=== PATIENT | female | born 1965 | race Caucasian/White ===

== ENCOUNTER 2017-05-17 09:39 | Emergency (ER) | payer OTHER ==
[~2017-05-17] VITALS: Ht 160 cm; Wt 90.7 kg
[2017-05-17] MEDS ORDERED: PRILOSEC 10MG C10 MG PO (09:47)
[2017-05-17] MEDS ORDERED: METFORMIN HCL500 M2 PO (09:47)
[2017-05-17] MEDS ORDERED: CELEXA10 MG PO (09:47)
[2017-05-17] MEDS ORDERED: EVAMIST8.1 ML TOP (09:48)
[2017-05-17] MEDS ORDERED: COZAAR 50 MG TA50 M2 PO (09:49)
[2017-05-17 10:02] LABS: ABSOLUTE BASOPHILS 0.1 thou/uL (0.0-0.2); ABSOLUTE EOSINOPHILS 0.2 thou/uL (0.0-0.7); ABSOLUTE LYMPHOCYTES 4.1 thou/uL (0.8-5.3); ABSOLUTE MONOCYTES 0.9 thou/uL (0.0-1.2); ABSOLUTE NEUTROPHILS 4.5 thou/uL (1.6-8.1); BASOPHILS 0.7 %; HEMATOCRIT 43.4 % (37.0-47.0); HEMOGLOBIN 14.5 gm/dL (12.0-15.0); LYMPHOCYTES 42.6 %; MCH 30.4 pg (26.0-34.0); MCHC 33.5 g/dL (28.0-37.0); MCV 90.8 fL (80.0-100.0); MONOCYTES 8.9 %; MPV 8.3 fl. (7.2-11.1); NUCLEATED RBCS 0 /100WBC; PLATELET COUNT* 349 thou/uL (150-400); POLYS 45.8 %; RBC 4.78 mil/uL (4.20-5.00); RDW-CV 13.6 % (10.5-14.5); WBC 9.7 thou/uL (4.0-11.0)
[2017-05-17 10:06] LABS: ANION GAP 7 mmol/L (7-16); BUN 12 mg/dL (7-18); CALCIUM 9.2 mg/dL (8.5-10.1); CHLORIDE 103 mmol/L (98-107); CO2 30 mmol/L (21-32); CREATININE 1.1 mg/dL (0.6-1.3); GLUCOSE 111 mg/dL (70-99); POTASSIUM 3.9 mmol/L (3.5-5.1); SODIUM 140 mmol/L (136-145)
[2017-05-17 10:17] LABS: ALBUMIN 3.8 g/dL (3.4-5.0); ALKALINE PHOSPHATASE 79 U/L (46-116); LIPASE 134 U/L (73-393); NT-PRO BRAIN NAT PEPTIDE 12 pg/mL (<300); SGOT 13 U/L (15-37); SGPT 21 U/L (30-65); TOTAL BILIRUBIN 0.5 mg/dL (<0.1-1.0); TROPONIN-I LEVEL <0.06 ng/mL (<0.06)
[2017-05-17 10:39] VITALS: BP 136/82
--- NOTE | 2017-05-17 16:21 | EKG ---
[place] [address] ELECTROCARDIOGRAM REPORT Name: SOFIYA ANDREA Room: [facility]#: [id number] Admission: 05/17/17 Attend Phys: Discharge: 05/17/17 Date of : 67 Report #: [id number] THIS REPORT FOR: //name// [facility] ED Test Date: 2017-05-17 Test Time: 09:48:08 Pat Name: SOFIYA ANDREA Department: Room: Gender: F Coroner: Hugo ELIZABETH : 1965 Requested By: Alirio Vegas Order Number: [id number] MD: Fox Julian Measurements Intervals [place] Rate: 94 P: 30 RI: 148 QRS: 43 QRSD: 105 T: 44 QT: 351 QTc: 439 Interpretive Statements Sinus rhythm Nondiagnostic inferior Q waves Baseline wander in lead(s) II,III,aVF,V1,V4,V6 No previous ECG available for comparison Electronically Signed On 05-17-2017 16:20:50 CDT by Fox Julian [email or web address] <ELECTRONICALLY SIGNED> By: Fox Julian MD, [facility] 05/17/17 1620 0948 0948 Fox Julian MD, [facility] /EPI
== END 2017-05-17 10:40 | disposition home or self-care (01) ==
LOC: M.ERS 09:39
PROVIDERS: Emergency Medicine
DX: I10 Essential (primary) hypertension (principal); R07.89 Other chest pain; Z90.710 Acquired absence of both cervix and uterus; Z88.0 Allergy status to penicillin

== ENCOUNTER → 2017-10-16 | Outpatient (CLI) | payer OTHER ==
[~2017-10-16] MED LIST: CELEXA10 MG PO; COZAAR 50 MG TA50 M2 PO; EFFEXOR XR75 MG PO; EVAMIST8.1 ML TOP; HALOPERIDOL 2 MG2 MG PO; IBGARD90 MG PO; METFORMIN HCL500 M2 PO; PRILOSEC 10MG C10 MG PO
== END ==
LOC: M.CT 08:32
DX: G43.011 Migraine without aura, intractable, with status migrainosus (principal); I10 Essential (primary) hypertension

== ENCOUNTER 2018-01-12 15:42 | Emergency (ER) | payer OTHER ==
[~2018-01-12] VITALS: Ht 160 cm; Wt 90.7 kg
[~2018-01-12 15:42] MED LIST changes: -EFFEXOR XR75 MG PO; -HALOPERIDOL 2 MG2 MG PO; -IBGARD90 MG PO
[2018-01-12] MEDS ORDERED: IBGARD90 MG PO (15:52)
[2018-01-12 16:06] LABS: ABSOLUTE BASOPHILS 0.1 thou/uL (0.0-0.2); ABSOLUTE EOSINOPHILS 0.3 thou/uL (0.0-0.7); ABSOLUTE LYMPHOCYTES 3.1 thou/uL (0.8-5.3); ABSOLUTE MONOCYTES 0.9 thou/uL (0.0-1.2); ABSOLUTE NEUTROPHILS 4.3 thou/uL (1.6-8.1); HEMATOCRIT 39.9 % (37.0-47.0); HEMOGLOBIN 13.7 gm/dL (12.0-15.0); LYMPHOCYTES 35.4 %; MCH 30.7 pg (26.0-34.0); MCHC 34.2 g/dL (28.0-37.0); MCV 89.7 fL (80.0-100.0); MONOCYTES 10.5 %; MPV 8.2 fl. (7.2-11.1); NUCLEATED RBCS 0 /100WBC; PLATELET COUNT* 342 thou/uL (150-400); POLYS 49.1 %; RBC 4.45 mil/uL (4.20-5.00); RDW-CV 13.3 % (10.5-14.5); WBC 8.8 thou/uL (4.0-11.0)
[2018-01-12 16:16] LABS: ANION GAP 10 mmol/L (7-16); BUN 17 mg/dL (7-18); CALCIUM 9.2 mg/dL (8.5-10.1); CHLORIDE 99 mmol/L (98-107); CO2 29 mmol/L (21-32); CREATININE 1.4 mg/dL (0.6-1.3); GLUCOSE 130 mg/dL (70-99); POTASSIUM 3.6 mmol/L (3.5-5.1); SODIUM 138 mmol/L (136-145)
[2018-01-12 16:22] LABS: APTT 26.6 Seconds (25.0-31.3); PROTIME 10.3 Seconds (9.20-11.50)
[2018-01-12 16:35] LABS: ALBUMIN 3.8 g/dL (3.4-5.0); ALKALINE PHOSPHATASE 88 U/L (46-116); CK-MB MASS 1.9 ng/mL (<0.5-3.6); LIPASE 146 U/L (73-393); MAGNESIUM 1.9 mg/dL (1.8-2.4); NT-PRO BRAIN NAT PEPTIDE 8 pg/mL (<300); SGOT 23 U/L (15-37); SGPT 28 U/L (30-65); TOTAL BILIRUBIN 0.3 mg/dL (<0.1-1.0); TOTAL PROTEIN 7.6 g/dL (6.4-8.2); TROPONIN-I LEVEL <0.06 ng/mL (<0.06)
[2018-01-12 16:36] LABS: INFLUENZA A ANTIGEN None Detected (None Detect); INFLUENZA B ANTIGEN None Detected (None Detect)
[2018-01-12 16:48] VITALS: BP 122/74
--- NOTE | 2018-01-13 11:36 | EKG ---
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 : 1965 Requested By: Enrike Farrar Order Number: [id number] MD: Chavo Dinero Measurements Intervals [place] Rate: 123 P: 48 NC: 152 QRS: 70 QRSD: 95 T: 42 QT: 312 QTc: 447 Interpretive Statements Sinus tachycardia Baseline wander in lead(s) I,II,III,aVR,aVL Compared to ECG 05/17/2017 09:48:08 Sinus rhythm no longer present Inferior Q waves no longer present Q waves no longer present Electronically Signed On 01-13-2018 11:36:19 HOSE MENDER by Chavo Dinero [email or web address] <ELECTRONICALLY SIGNED> By: Chavo Dinero MD, FACC 01/13/18 1136 1546 1546 Chavo Dinero MD, FAC /EPI
== END 2018-01-12 16:49 | disposition home or self-care (01) ==
LOC: M.ERS 15:42
PROVIDERS: Family Medicine
DX: B34.9 Viral infection, unspecified (principal); R42 Dizziness and giddiness; R19.7 Diarrhea, unspecified; K58.9 Irritable bowel syndrome, unspecified; Z90.710 Acquired absence of both cervix and uterus; Z98.890 Other specified postprocedural states; Z88.0 Allergy status to penicillin

== ENCOUNTER 2018-01-18 14:12 | Emergency (ER) | payer OTHER ==
[~2018-01-18] VITALS: Ht 160 cm; Wt 90.7 kg
[~2018-01-18 14:12] MED LIST changes: +IBGARD90 MG PO
[2018-01-18 14:40] LABS: ABSOLUTE BASOPHILS 0.1 thou/uL (0.0-0.2); ABSOLUTE EOSINOPHILS 0.3 thou/uL (0.0-0.7); ABSOLUTE LYMPHOCYTES 3.9 thou/uL (0.8-5.3); ABSOLUTE MONOCYTES 0.9 thou/uL (0.0-1.2); ABSOLUTE NEUTROPHILS 3.7 thou/uL (1.6-8.1); BASOPHILS 0.8 %; EOSINOPHILS 3.3 %; HEMATOCRIT 41.4 % (37.0-47.0); HEMOGLOBIN 13.9 gm/dL (12.0-15.0); LYMPHOCYTES 43.7 %; MCHC 33.6 g/dL (28.0-37.0); MCV 89.3 fL (80.0-100.0); MPV 8.2 fl. (7.2-11.1); NUCLEATED RBCS 0 /100WBC; PLATELET COUNT* 414 thou/uL (150-400); POLYS 42.2 %; RBC 4.64 mil/uL (4.20-5.00); WBC 8.9 thou/uL (4.0-11.0)
[2018-01-18 14:56] LABS: ANION GAP 14 mmol/L (7-16); BUN 11 mg/dL (7-18); CALCIUM 9.1 mg/dL (8.5-10.1); CHLORIDE 103 mmol/L (98-107); CO2 23 mmol/L (21-32); CREATININE 1.3 mg/dL (0.6-1.3); GLUCOSE 125 mg/dL (70-99); POTASSIUM 3.8 mmol/L (3.5-5.1); SODIUM 140 mmol/L (136-145)
[2018-01-18 15:08] LABS: ALBUMIN 3.6 g/dL (3.4-5.0); ALKALINE PHOSPHATASE 93 U/L (46-116); LIPASE 147 U/L (73-393); SGOT 18 U/L (15-37); SGPT 29 U/L (30-65); TOTAL BILIRUBIN 0.3 mg/dL (<0.1-1.0); TOTAL PROTEIN 7.7 g/dL (6.4-8.2); TROPONIN-I LEVEL <0.06 ng/mL (<0.06)
[2018-01-18] MEDS ORDERED: EFFEXOR XR75 MG PO (17:55)
[2018-01-18] MEDS ORDERED: HALOPERIDOL 2 MG2 MG PO (17:55)
[2018-01-18 18:15] VITALS: BP 118/83
--- NOTE | 2018-01-21 15:24 | EKG ---
[place] [address] ELECTROCARDIOGRAM REPORT Name: SOFIYA ANDREA Polly Room: [facility]#: [id number] Admission: 01/18/18 Attend Phys: Discharge: 01/18/18 Date of : 67 Report #: [id number] THIS REPORT FOR: //name// [facility] ED Test Date: 2018-01-18 Test Time: 14:13:02 Pat Name: SOFIYA ANDREA Department: Room: Gender: F Manager Of Disaster Recovery: UNKNOWN : 1965 Requested By: Yumiko Day Order Number: [id number] MD: Silverio Barrett Measurements Intervals [place] Rate: 117 P: 49 MN: 154 QRS: 70 QRSD: 95 T: 48 QT: 330 QTc: 461 Interpretive Statements Sinus tachycardia Compared to ECG 01/12/2018 15:46:17 No significant changes Electronically Signed On 01-21-2018 15:24:43 PLANT OPERATIONS MANAGER by Silverio Barrett [email or web address] <ELECTRONICALLY SIGNED> By: Silverio Barrett MD, [facility] 01/21/18 1524 1413 1413 Silverio Barrett MD, FAC /EPI
== END 2018-01-18 18:15 | disposition home or self-care (01) ==
LOC: M.ERS 14:12
PROVIDERS: Personal Emergency Response Attendant
DX: R07.89 Other chest pain (principal); F41.9 Anxiety disorder, unspecified

== ENCOUNTER → 2018-02-15 | Outpatient (CLI) | payer OTHER ==
[~2018-02-15] VITALS: Ht 160 cm; Wt 89.4 kg
[~2018-02-15] MED LIST changes: +COZAAR 50 MG TA50 M1 PO; -COZAAR 50 MG TA50 M2 PO; +EFFEXOR XR75 MG PO; +HALOPERIDOL 2 MG2 MG PO
[2018-02-15 08:21] LABS: HEMATOCRIT 41.9 % (37.0-47.0); HEMOGLOBIN 14.2 gm/dL (12.0-15.0); MCHC 33.9 g/dL (28.0-37.0); MCV 91.6 fL (80.0-100.0); MPV 8.6 fl. (7.2-11.1); RBC 4.57 mil/uL (4.20-5.00); RDW-CV 13.6 % (10.5-14.5); WBC 8.3 thou/uL (4.0-11.0)
[2018-02-15 08:24] VITALS: BP 141/102
[2018-02-15 08:31] LABS: APTT 20.9 Seconds (25.0-31.3); PROTIME 9.8 Seconds (9.20-11.50)
[2018-02-15 08:32] LABS: ANION GAP 8 mmol/L (7-16); BUN 14 mg/dL (7-18); CHLORIDE 105 mmol/L (98-107); CO2 28 mmol/L (21-32); CREATININE 1.2 mg/dL (0.6-1.3); GLUCOSE 111 mg/dL (70-99); POTASSIUM 4.1 mmol/L (3.5-5.1); SODIUM 141 mmol/L (136-145)
[2018-02-15 08:37] LABS: ALBUMIN 3.6 g/dL (3.4-5.0); ALKALINE PHOSPHATASE 85 U/L (46-116); CHOLESTEROL 248 mg/dL (<200); HDL CHOLESTEROL 42 mg/dL (>40); LDL CHOLESTEROL 153 mg/dL (<100); SERUM ASSESSMENT Clear; SGOT 16 U/L (15-37); SGPT 31 U/L (30-65); TC:HDL 5.9 Ratio (Not establshd); TOTAL BILIRUBIN 0.2 mg/dL (<0.1-1.0); TOTAL PROTEIN 7.8 g/dL (6.4-8.2); TRIGLYCERIDE 265 mg/dL (<150); VLDL 53 mg/dL (<40)
[2018-02-15 10:22] VITALS: BP 142/91
[2018-02-15 11:03] VITALS: BP 161/98
--- NOTE | 2018-02-15 15:04 | EKG ---
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: : 1965 Requested By: Jimmy Sanchez Order Number: [id number] Reading MD: Jimmy Sanchez Measurements Intervals [place] Rate: 95 P: -1 LA: 147 QRS: 54 QRSD: 100 T: 32 QT: 354 QTc: 445 Interpretive Statements Sinus rhythm Abnormal R-wave progression, early transition Abnormal inferior Q waves Compared to ECG 01/18/2018 14:13:02 Sinus tachycardia no longer present Electronically Signed On 02-15-2018 15:04:32 MANAGER DECISION SUPPORT by Jimmy Sanchez [email or web address] <ELECTRONICALLY SIGNED> By: Jimmy Sanchez MD, [facility] 02/15/18 1504 [id number] [id number] Jimmy Sanchez MD, [facility] /EPI
--- NOTE | 2018-03-15 15:11 | CARD ---
[address] [address] CARDIAC CATH REPORT Name: SOFIYA ANDREA Room: [facility] Nancy#: [id number] Admission: 02/15/18 Attend Phys: Jimmy Sanchez MD, F Discharge: Date of : 67 Report #: [id number] THIS REPORT FOR: //name// APPROVED REPORT Study performed: 02/15/2018 08:10:19 Patient Details Patient Status: Out-Patient Room #: The patient is a 52 year-old female Event Personnel Jimmy Sanchez Head Of Merchandise Buying, Patricia Luz RN, Huseyin Schneider Monitor, Oli Tineo Scrub Procedures Performed Left Heart Catheterization, Left Ventriculogram, Right transradial approach Indication Dizziness and vertigo, Chest pain Risk Factors Family History, Hypercholesterolemia, Diabetes Tobacco History () Admission/Lab Medications/Medications given during procedure Aspirin, Heparin Unfract. Procedure Narrative The patient was brought electively to the Cardiac Catheterization Laboratory and was prepped and draped in a sterile manner. The right wrist was infiltrated with 2% Lidocaine subcutaneous anesthesia. A Slender Glidesheath sheath was inserted into the right radial artery. Coronary angiography was performed using coronary diagnostic catheters. The right coronary system was accessed and visualized with a JR4 5fr catheter. The left coronary system was accessed and visualized with a JL 3.5 5fr catheter. The left ventricle was accessed and visualized with a PC: Angled Pig 5fr catheter. Left ventricular/Aortic Valve gradient assessed via catheter pullback. [place] [address] CARDIAC CATH REPORT Name: SOFIYA ANDREAJONACarmen Room: [facility]#: [id number] Admission: 02/15/18 Attend Phys: Jimmy Sanchez MD, F Discharge: Date of : 67 Report #: [id number] CHILDERS projection. Closure device was deployed with a 6 Fr Vasc-Band Reg 24cm. The patient tolerated the procedure well and there were no complications associated with the procedure. There was no hematoma. Intraoperative Conscious Sedation Sedation start time: 931 Case end Time: 95 Fentanyl 50 mcg Dose: 645 mGy Contrast Type and Amount: Omnipaque 100 ml Coronary Angiography The patient's coronary anatomy is right dominant. [place] Artery Percent Stenosis Left Main: 0 % Prox LAD: 0 % Mid/Distal LAD: 0 % Circumflex: 0 % RCA: 0 % Ramus: % Left Ventriculography The left ventricle is normal in size with normal contractility. The left ventricular ejection fraction is estimated to be 60-65%. Left ventricular wall motion abnormalities are not present. There is no mitral insufficiency. Hemodynamics The aortic pressure is 148/103 mmHg with a mean of 74 mmHg. The left ventricular pressure is 134/10 mmHg with a mean of mmHg. The left ventricular end diastolic pressure is 8 mmHg. There was no gradient across the aortic valve upon pullback. Pullback from the left ventricle to the aorta revealed no gradient across the aortic valve. Conclusion 1. normal coronary arteries 2. normal LV function 3. suspect [place] [address] CARDIAC CATH REPORT Name: SOFIYA ANDREAJONACarmen Room: [facility]#: [id number] Admission: 02/15/18 Attend Phys: Jimmy Sanchez MD, F Discharge: Date of : 67 Report #: [id number] Recommendations Aggressive Medical Therapy <ELECTRONICALLY SIGNED> By: Jimmy Sanchez MD, FACC 02/16/18 1621 162 [id number] Sanchez MD, FACC /INF
== END | disposition home or self-care (01) ==
LOC: M.CL 07:24
PROVIDERS: Internal Medicine Cardiovascular Disease
DX: R07.9 Chest pain, unspecified (principal); Z82.49 Family history of ischemic heart disease and other diseases of the circulatory system; E78.00 Pure hypercholesterolemia, unspecified; E11.9 Type 2 diabetes mellitus without complications; Z87.891 Personal history of nicotine dependence

== ENCOUNTER 2019-10-25 16:56 | Emergency (ER) | payer OTHER ==
[~2019-10-25] VITALS: Ht 160 cm; Wt 90.7 kg
[2019-10-25] MEDS ORDERED: WELLBUTRIN 100100 MG PO (17:11)
[2019-10-25] MEDS ORDERED: NORCO 5-325 TA1 EAC2 PO (18:00)
[2019-10-25 18:29] VITALS: BP 133/70
== END 2019-10-25 18:30 | disposition home or self-care (01) ==
LOC: M.ERS 16:56
DX: M25.561 Pain in right knee (principal); I10 Essential (primary) hypertension; K58.9 Irritable bowel syndrome, unspecified; Z98.890 Other specified postprocedural states; Z90.710 Acquired absence of both cervix and uterus; Z88.0 Allergy status to penicillin